=== PATIENT | female | born 1965 | race Caucasian/White ===

== ENCOUNTER → 2022-04-27 | Outpatient (CLI) | payer OTHER ==
--- NOTE | 2022-04-27 11:47 | KCIC ---
EXAMINATION: DG SMALL BOWEL FOLLOW THROUGH (SMALL BOWEL FOLLOW-THROUGH) CLINICAL HISTORY: MID/RT SIDE ABD PAIN, GAS, NAUSEA 6 MO, DIVERTICULITIS. COLONOSCOPY AND ENDOSCOPY 1 WEEK AGO, CHOLECYSTECTOMY TECHNIQUE: Routine small bowel follow-through performed after oral administration of barium contrast. - Number of fluoroscopic images: 2 - Fluoroscopy time: 73 seconds COMPARISON: None FINDINGS: Progressive passage of contrast material through the stomach and small bowel with contrast visualized in the colon by 20 minutes retrospectively but confirmed to be within the colon at 60 minutes. Small bowel caliber and mucosal pattern within normal limits. Terminal ileum within normal limits. IMPRESSION: Unremarkable small bowel series. Electronically signed by: Odilon Kellogg DO (04/27/2022 11:45 AM) [id number]
== END ==
LOC: KCIC 08:39
PROVIDERS: ATTEND Internal Medicine Gastroenterology
DX: R10.84 Generalized abdominal pain (principal); R11.0 Nausea; R14.0 Abdominal distension (gaseous); K57.92 Diverticulitis of intestine, part unspecified, without perforation or abscess without bleeding
CPT/HCPCS: 74250